=== PATIENT | male | born 1970 | race Caucasian/White ===

== ENCOUNTER 2024-12-06 10:37 | Outpatient (CLI) | payer MEDICAID, SELFPAY ==
[2024-12-06 19:21] LABS: Alanine Aminotransferase 123 U/L (12-78); Albumin Level 4.2 g/dl (3.5-5.0); Albumin/Globulin Ratio 1.3 (1.1-1.8); Alkaline Phosphatase 128 U/L (38-126); Aspartate Amino Transferase 55 U/L (17-59); Bilirubin,Total 0.2 mg/dl (0.2-1.3); Blood Urea Nitrogen 15 mg/dl (9-20); Calcium 9.1 mg/dl (8.4-10.2); Carbon Dioxide 26 mmol/L (22.0-30.0); Cholesterol 155 mg/dl (140-200); Estimated Glomerular Filt Rate 141 ml/min (>60); GFR (African American) 171 ML/MIN (>60); Globulin 3.2 g/dL (1.3-3.2); HDL Cholesterol 31 mg/dl (40-60); Potassium 3.9 mmoL/L (3.5-5.1); Sodium 130 mmol/L (136-145); Total Protein,Serum 7.4 g/dl (6.3-8.2); Triglycerides 122 mg/dl (30-150); VLDL Cholesterol 24 mg/dL (0-40)
[2024-12-06 19:31] LABS: Direct LDL Cholesterol 101.99 mg/dL (100-129)
[2024-12-06 19:43] LABS: Hemoglobin A1C 12.6 % (4.0-6.0)
[2024-12-06 19:45] LABS: Glucose 482 mg/dl (74-100)
[2024-12-06 20:07] LABS: HIV Combo POSITIVE (Negative)
[2024-12-06 20:09] LABS: Hepatitis C Ab Qual. W/ RFX REACTIVE (Negative)
[2024-12-06 20:32] LABS: Anion Gap 12.9 mEq/L (5-15); Chloride 95 mmol/L (98-107)
[2024-12-06 22:17] LABS: HIV Combo Retest POSITIVE (Negative)
[2024-12-11 11:29] LABS: HIV Screen 4th Generation wRfx NON REACTIVE
== END 2024-12-06 23:59 | disposition home or self-care (01) ==
LOC: LAB.DROPOF 12-09 10:38
PROVIDERS: PCP Family Medicine; Visit Provider Family Medicine
DX: Z11.59 Encounter for screening for other viral diseases (principal); Z76.89 Persons encountering health services in other specified circumstances
CPT/HCPCS: 80053; 80061; 83036; 86703; 86803; 87389; 87522; G0432

== ENCOUNTER 2024-12-19 15:00 | Outpatient (CLI) | payer MEDICAID, SELFPAY ==
[2024-12-19 18:36] LABS: Hep A Ab, IgM ND
[2024-12-19 18:54] LABS: Basophils # 0.1 K/mm3 (0-0.2); Basophils % 0.7 % (0.1-2.0); Eosinophils # 0.3 K/mm3 (0.0-0.4); Eosinophils % 2.5 % (0.1-12.0); Hemoglobin 14.4 g/dL (14.1-18.0); Lymphocytes # 2.8 K/mm3 (0.7-4.5); Lymphocytes % 25.9 % (10-50); Mean Corpuscular HGB Conc 35.1 g/dL (31.8-35.4); Mean Corpuscular Volume 88.4 fl (80-94); Mean Platelet Volume 9.5 fl (7.4-10.4); Monocytes # 0.9 K/mm3 (0.1-1.0); Monocytes % 8.2 % (1.7-9.3); Neutrophils # 6.7 K/mm3 (1.8-7.8); Platelet Count 297 K/mm3 (142-424); Red Blood Count 4.64 M/mm3 (4.60-6.20); Red Cell Distribution Width 12.9 % (11.5-17.5); White Blood Count 10.8 K/mm3 (4.8-10.8)
[2024-12-19 19:00] LABS: INR 0.94 (0.9-1.1); Prothrombin Time 10.6 seconds (10.1-12.5)
[2024-12-19 20:27] LABS: Alanine Aminotransferase 132 U/L (12-78); Albumin Level 4.4 g/dl (3.5-5.0); Albumin/Globulin Ratio 1.4 (1.1-1.8); Alkaline Phosphatase 124 U/L (38-126); Anion Gap 16.1 mEq/L (5-15); Aspartate Amino Transferase 66 U/L (17-59); Bilirubin,Total 0.3 mg/dl (0.2-1.3); Blood Urea Nitrogen 13 mg/dl (9-20); Calcium 9.1 mg/dl (8.4-10.2); Carbon Dioxide 22 mmol/L (22.0-30.0); Chloride 99 mmol/L (98-107); Estimated Glomerular Filt Rate 141 ml/min (>60); GFR (African American) 171 ML/MIN (>60); Globulin 3.2 g/dL (1.3-3.2); Glucose 391 mg/dl (74-100); Potassium 4.1 mmoL/L (3.5-5.1); Sodium 133 mmol/L (136-145); Total Protein,Serum 7.6 g/dl (6.3-8.2)
[2024-12-21 08:20] LABS: Hep A Ab, Total Negative (Negative); Hep B Core Ab, Total Negative (Negative); Hep B Surface Ab, Qual Non Reactive (.); Hepatitis B Surface Antigen Negative (Negative)
[2024-12-22 22:12] LABS: Hepatitis C Genotype 1a (.)
== END 2024-12-19 23:59 | disposition home or self-care (01) ==
LOC: LAB.DROPOF 12-20 10:15
PROVIDERS: PCP Family Medicine; Visit Provider Family Medicine
DX: R76.8 Other specified abnormal immunological findings in serum (principal)
CPT/HCPCS: 80053; 85025; 85610; 86704; 86706; 86708; 86709; 87340; 87902